=== PATIENT | female | born 1985 | race Caucasian/White ===

== ENCOUNTER 2021-09-30 09:32 | Observation (INO) | payer OTHER ==
[~2021-09-30] VITALS: Ht 152.4 cm; Wt 64.0 kg
[~2021-09-30 09:32] MED LIST: COLACE 100MG C100 MG PO
[2021-09-30 11:20] LABS: HEMOGLOBIN 13.4 gm/dl (12.3-15.3); RED BLOOD COUNT 4.66 M/UL (4.00-5.10); WHITE BLOOD COUNT 8.2 K/UL (4.5-11.0)
[2021-09-30 11:39] LABS: BUN/CREATININE RATIO 24 (0-10)
[2021-09-30] MEDS ORDERED: TRANDATE 100 M100 MG PO (11:58)
[2021-09-30 12:59] LABS: URINE TOTAL PROTEIN 147 mg/dl
== END 2021-09-30 22:20 | disposition home or self-care (01) ==
LOC: GENOP 09:32 → OB 16:07
PROVIDERS: ADMIT Obstetrics & Gynecology
DX: O16.3 Unspecified maternal hypertension, third trimester (principal); O99.283 Endocrine, nutritional and metabolic diseases complicating pregnancy, third trimester; E78.1 Pure hyperglyceridemia; Z3A.36 36 weeks gestation of pregnancy; Z20.822 Contact with and (suspected) exposure to COVID-19
CPT/HCPCS: 80053; 81001; 84156; 84550; 84560; 85025; 96372; 96374; 96376; G0378; J0360; J0702; U0002

== ENCOUNTER 2021-10-03 05:39 | Inpatient (IN) | payer OTHER ==
[~2021-10-03] VITALS: Ht 152.4 cm; Wt 64.0 kg
[~2021-10-03 05:39] MED LIST changes: +TRANDATE 100 M100 MG PO
[2021-10-03] MEDS ORDERED: FAMOTIDINE20 MG PO (06:22)
[2021-10-03] MEDS ORDERED: PRENATABS FA T1 EACH PO (06:23)
[2021-10-03] MEDS ORDERED: HYDROCODON-ACE1 EAC6 PO (08:49)
[2021-10-03] MEDS ORDERED: IBUPROFEN600 MG PO (08:49)
[2021-10-03] MEDS ORDERED: COLACE 100MG C100 MG PO (08:49)
[2021-10-04 06:30] LABS: HEMOGLOBIN 9.4 gm/dl (12.3-15.3)
[2021-10-04 13:36] LABS: HEMOGLOBIN 9.3 gm/dl (12.3-15.3)
[2021-10-05] MEDS ORDERED: LABETALOL HCL100 MG PO (10:01)
== END 2021-10-05 13:22 | disposition home or self-care (01) | DRG 787 ==
LOC: OB 05:39
PROVIDERS: Obstetrics & Gynecology; ADMIT Obstetrics & Gynecology
PROC: 4A1HXCZ Monitoring of Products of Conception, Cardiac Rate, External Approach (ICD-10-PCS; 2021-10-03)
PROC: 10D00Z1 Extraction of Products of Conception, Low, Open Approach (ICD-10-PCS; principal; 2021-10-03 09:00)
DX: O13.4 Gestational [pregnancy-induced] hypertension without significant proteinuria, complicating childbirth (principal); D62 Acute posthemorrhagic anemia; Z3A.37 37 weeks gestation of pregnancy; Z37.0 Single live birth; O75.89 Other specified complications of labor and delivery; R42 Dizziness and giddiness; O90.81 Anemia of the puerperium
CPT/HCPCS: 36415; 81001; 82800; 83735; 85014; 85018; C9113; J0360; J0690; J1885; J2274; J2405; J2590; J3010; J3475; J7120